=== PATIENT | male | born 1955 | race Two or more races ===

== ENCOUNTER 2024-10-29 14:36 | Emergency (ER) | payer OTHER ==
[~2024-10-29] VITALS: Ht 175.3 cm; Wt 70.3 kg
--- NOTE | 2024-10-29 15:22 | ED.PDOC ---
[place]. trauma (HPI) HPI Comments A 69 YEAR-OLD MALE PRESENTS TO THE ED WITH A CHIEF COMPLAINT OF MULTIPLE TRAUMA S/P FALL YESTERDAY. PATIENT REPORTS THAT HE WAS OUTSIDE ON THE DRIVEWAY, SLIPPED ON SOAP, AND HAS SINCE HAD A HEMATOMA ON THE HEAD, WELL , RIGHT FOREARM AND RIB PAIN. PATIENT ADDITIONALLY NOTES A GANGLION CYST TO THE LEFT ARM NOT CAUSED BY THIS INCIDENT SPECIFICALLY. PATIENT HAS NO FURTHER SYMPTOMS AT THIS TIME AND OTHERWISE DENIES LOC, DIZZINESS, MIGRAINE, FEVER, N/V, OR CHEST PAIN. PATIENT IS ALERT, ORIENTED X 4, AND HAS STEADY GAIT. Chief Complaint: MULTIPLE TRAUMA Time Seen by MD: 15:15 Reviewed notes: Nurses Notes, Medications, Allergies Allergies: Coded Allergies: NO KNOWN ALLERGIES (Unverified , 10/29/24) Home Meds Active Scripts Methocarbamol (Methocarbamol) 750 Mg Tab, 750 MG PO QHSP PRN, #20 TAB Prov:ZACHARY SAINI 10/29/24 Ibuprofen (Ibuprofen) 800 Mg Tab, 1 TAB PO TID, #30 TAB Prov:ZACHARY SAINI 10/29/24 Information Source: Patient, Spouse Mode of Arrival: Ambulatory Severity: Moderate Timing: Days (X1) Duration: Since onset Prehospital treatment: None Location: (R) Arm, Head, Other (RIGHT MIDDLE RIBS ) Mechanism: Fall Associated signs and symtoms: Headache, Other (PAIN UPON PALPATION ) Past Medical History Past Medical History (Other): HEPATITIS C Surgical History: Denies all surgeries Family History Family History: Reviewed,noncontributory to illness, No family hx of Cancer, No family hx of DM, No family hx of Heart sparkle, No family hx of HTN, No family hx ofKidney sparkle, No family hx of Liver sparkle, No family hx of Lung sparkle, No family hx of Stroke Social History Smoker: Non-Smoker Alcohol: Occasionally Drugs: Denies Drug Use Lives In: Home Constitutional: denies: chills, diaphoresis, fatigue, fever, malaise, sweats, weakness, others EENTM: denies: blurred vision, double vision, ear bleeding, ear discharge, ear drainage, ear pain, ear ringing, eye pain, eye redness, hearing loss, mouth pain, mouth swelling, nasal discharge, nose bleeding, nose congestion, nose pain, photophobia, tearing, throat pain, throat swelling, voice changes, others Respiratory: denies: cough, hemoptysis, orthopnea, SOB at rest, shortness of breath, SOB with excertion, stridor, wheezing, others Cardiovascular: denies: chest pain, dizzy spells, diaphoresis, Dyspnea on exertion, edema, irregular heart beat, left arm pain, lightheadedness, palpitations, PND, syncope, others Gastrointestinal: denies: abdomen distended, abdominal pain, blood streaked bowels, constipated, diarrhea, dysphagia, difficulty swallowing, hematemesis, melena, nausea, poor appetite, poor fluid intake, rectal bleeding, rectal pain, vomiting, others Genitourinary: denies: burning, dysuria, flank pain, frequency, hematuria, incontinence, penile discharge, penile sore, pain, testicle pain, testicle swelling, urgency, others Neurological: denies: dizziness, fainting, headache, left sided numbness, left sided weakness, numbness, paresthesia, pre-existing deficit, right sided numbne ss, right sided weakness, seizure, speech problems, tingling, tremors, weakness, others Musculoskeletal: reports: joint pain, joint swelling, muscle pain, others (RIGHT ARM PAIN, RIB PAIN ); denies: back pain, gout, muscle stiffness, neck pain Integumetry: reports: bruises (RIGHT ARM AND LEFT FOREHEAD), wounds (HEMATOMA TO THE HEAD ); denies: change in color, change in hair/nails, dryness, laceration, lesions, lumps, rash, others Allergic/Immunocompromised: denies: Difficulty Healing, Frequent Infections, Hives, Itching, others Hematologic/Lymphatic: denies: anemia, blood clots, easy bleeding, easy bruising, swollen glands, others Endocrine: denies: excessive hunger, excessive sweating, excessive thirst, excessive urination, flushing, intolerance to cold, intolerance to heat, unexplained weight gain, unexplained weight loss, others Psychiatric: denies: anxiety, bipolar disorder, depression, hopeless, panic disorder, schizophrenia, sleepless, suicidal, others All Other Systems: Reviewed and Negative Physical Exam General Appearance: No Apparent Distress, Normal HEENT: Head (LEFT FOREHEAD HEMATOMA, NO BONY TENDERNESS AND DEFORMITY. ), Normal ENT Inspection, PERRL/EOMI, Pharynx Normal, TMs Normal Neck: Full Range of Motion, Non-Tender, Normal, Normal Inspection Respiratory: Chest Non-Tender, Lungs Clear, No Accessory Muscle Use, No Respiratory Distress, Normal Breath Sounds Cardiovascular: No Edema, No JVD, No Murmur, No Gallop, Normal Peripheral Pulses, Regular Rate/Rhythm Breast Exam: Deferred Gastrointestinal: No Organomegaly, Non Tender, No Pulsatile Mass, Normal Bowel Sounds, Soft Genitalia: Deferred Pelvic: Deferred Rectal: Deferred Extremities: No calf tenderness, Normal capillary refill, Normal range of motion, No pedal edema, Tender (AND CONTUSION ON RIGHT ARM, NO BONY TENDERNESS, SWELLING AND DEFORMITY, NORMAL ROM. ) Musculoskeletal : Location: Right Apperance: Tenderness (AND MUSCLE TIGHTNESS ON RIGHT MIDDLE RIBS, NO REDNESS AND SWELLING. ) Neurologic: Alert, program support assistant II-XII nml as Tested, No Motor Deficits, Normal Affect, Normal Mood, No Sensory Deficits Cerebellar Function: Normal Reflexes: Normal Skin: Bruises (RIGHT ARM. ), Dry, Normal Color, Warm Peripheral Pulses: 2+ carotid (R), 2+ carotid (L) Lymphatic: No Adenopathy Was a procedure done? Was a procedure done?: No Differential Diagnosis Multiple Trauma: Fractures, Contusion, Hematoma, Laceration X-Ray, Labs, Meds, VS Vital Signs Date Time Temp Pulse Resp B/P (MAP) Pulse Ox O2 Delivery O2 Flow Rate FiO2 //25 15:49 99.7 98 16 97/65 (76) 95 99.7 CLINICAL INFORMATION: Fall injury. TECHNIQUE: Axial imaging was obtained through the brain without contrast. Coronal and sagittal reformatted images were obtained, reviewed, and stored. Images were reviewed in brain and bone windows. All CT scans at this medical facility are performed using dose modulation techniques as appropriate to a performed exam including the following: Automated exposure control was utilized; adjustment of the MA and/or KV according to patient size; and use of iterative reconstruction technique. CTDIvol = 48.31 mGy DLP = 884.92 mGy-cm COMPARISON: None FINDINGS: There is no acute intracranial hemorrhage. No mass effect or midline shift. The ventricles and sulci are within normal limits in size for age. Cavum septum pellucidum et vergae incidentally noted. Basal cisterns are patent. The calvarium is unremarkable. Paranasal sinuses and mastoid air cells are clear. Moderate-sized left frontal scalp hematoma. IMPRESSION: 1. No CT evidence of acute intracranial abnormality. 2. Moderate-sized left frontal scalp hematoma. ICAL HISTORY: 69 years old, Male; FALL. TECHNIQUE: PA view of the chest and AP and oblique views of the right ribs were obtained. COMPARISON: None FINDINGS: There are small calcified granulomas in both lungs. Lungs are otherwise clear. No pneumothorax or pleural effusion. Cardiac and mediastinal contours are within normal limits in size. Pulmonary vasculature is normal. Nondisplaced fracture of the right anterolateral 8th rib without significant displacement. Possible subtle fracture of the anterolateral aspect of the right 9th rib. IMPRESSION: 1. Suspected acute fractures of the right anterolateral 8th and 9th ribs without significant displacement. 2. No other evidence of acute disease in the chest. X-Ray, Labs, Meds, VS Comment EXTERNAL MEDICAL RECORDS: NONE INDEPENDENT HISTORIANS: NONE SOCIAL DETERMINANTS OF HEALTH: NONE LABS ORDERED: NONE REVIEWED AND INTERPRETED RESULTS: NONE IMAGING ORDERED: HEAD CT WITHOUT CONTRAST AND RIGHT RIB XRAY TREATMENTS ORDERED: PT DECLINED PAIN MEDICATION AT THIS TIME, ONLY REQUESTS RX. PATIENT'S CASE AND RESULTS HAVE BEEN DISCUSSED WITH THE ED ATTENDING PHYSICIAN AND THEY AGREE WITH MY PLAN OF CARE. RX: MOTRIN AND ROBAXIN. I HAVE DISCUSSED IMAGING AND LAB RESULTS WITH THE PATIENT AND HAVE INSTRUCTED THE PATIENT TO FOLLOW UP WITH THEIR PCP IN 1-2 DAYS. THE PATIENT FULLY UNDERSTANDS THEIR RESULTS AND ARE AWARE THEY NEED TO FOLLOW UP WITH THEIR PCP FOR FURTHER EVALUATION IF THEIR SYMPTOMS PERSIST. Images Reviewed?: Images reviewed and evaluated by me Time of 1ST Reevaluation: 16:48 Reevaluation 1ST: Improved Patient Education/Counseling: Diagnosis, Treatment, Need For Follow Up Family Education/Counseling: Diagnosis, Treatment, Need For Follow Up Medical Screening: No EMC Exist At This Time Departure 1 Departure Time of Disposition: 17:00 Impression: Primary Impression: Hematoma of frontal scalp Qualified Codes: S00.03XA - Contusion of scalp, initial encounter Additional Impressions: Fracture of right eighth rib Fracture of right ninth rib Disposition: 01 HOME / SELF CARE / HOMELESS Condition: Stable Additional Instructions: FOLLOW-UP WITH PCP IN 1 TO 2 DAYS. TAKE MEDICATIONS PRESCRIBED. RETURN TO ED FOR ANY NEW OR WORSENING SYMPTOMS. e-Prescriptions Methocarbamol (Methocarbamol) 750 Mg Tab 750 MG PO QHSP PRN, #20 TAB Prov: PARVEENSHIRLEYA PA 10/29/24 Ibuprofen (Ibuprofen) 800 Mg Tab 1 TAB PO TID, #30 TAB Prov: PARVEENSHIRLEYA PA 10/29/24 Discharged With: Self, Spouse Critical Care Note Critical Care Time?: No Stability Stability form required: No Heart Score Heart Score: Heart Score Response (Comments) Value History N/A 0 EKG N/A 0 Age N/A 0 Risk Factors N/A 0 Troponin N/A 0 Total 0 I personally scribed for PARVEEN,YINXIA PA ([email or web address]) on 10/29/24 at 15:22. Electronically submitted by Gretchen Parmar ([employer]). I personally scribed for PARVEEN,YINXIA PA ([email or web address]) on 10/29/24 at 15:23. Electronically submitted by Gretchen Parmar ([email or web address]). I personally scribed for PARVEEN,YINXIA PA ([email or web address]) on 10/29/24 at 16:08. Electronically submitted by Gretchen Parmar ([employer]). I personally scribed for PARVEEN,YINXIA PA ([email or web address]) on 10/29/24 at 16:11. Electronically submitted by Gretchen Parmar ([employer]). I personally scribed for PARVEEN,YINXIA PA ([email or web address]) on 10/29/24 at 16:11. Electronically submitted by Gretchen Parmar ([email or web address]). I personally scribed for PARVEEN,YINXIA PA ([email or web address]) on 10/29/24 at 16:33. Electronically submitted by Gretchen Parmar ([employer]). I personally scribed for PARVEEN,YINXIA PA ([email or web address]) on 10/29/24 at 16:40. Electronically submitted by Gretchen Parmar ([employer]). PARVEENYINXIA PA Oct 29, 2024 15:22
[2024-10-29 15:49] VITALS: BP 97/65; PULSE 98; RESP 16; TEMP 99.7; O2SAT 95
--- NOTE | 2024-10-29 15:55 | DVH ---
CLINICAL INFORMATION: Fall injury. TECHNIQUE: Axial imaging was obtained through the brain without contrast. Coronal and sagittal reform atted images were obtained, reviewed, and stored. Images were reviewed in brain and bone windows. Al l CT scans at this medical facility are performed using dose modulation techniques as appropriate to a performed exam including the following: Automated exposure control was utilized; adjustment of the MA and/or KV according to patient size; and use of iterative reconstruction technique. CTDIvol = 48.3 1 mGy DLP = 884.92 mGy-cm COMPARISON: None FINDINGS: There is no acute intracranial hemorrhage. No mass effect or midline shift. The ventricles and sulci are within normal limits in size for age. Cavum septum pellucidum et vergae incidentally no bert. Basal cisterns are patent. The calvarium is unremarkable. Paranasal sinuses and mastoid air leonila ls are clear. Moderate-sized left frontal scalp hematoma. IMPRESSION: 1. No CT evidence of acute intracranial abnormality. 2. Moderate-sized left frontal scalp hematoma.
--- NOTE | 2024-10-29 16:28 | DVH ---
CLINICAL HISTORY: 69 years old, Male; FALL. TECHNIQUE: PA view of the chest and AP and oblique views of the right ribs were obtained. COMPARISON: None FINDINGS: There are small calcified granulomas in both lungs. Lungs are otherwise clear. No pneumoth orax or pleural effusion. Cardiac and mediastinal contours are within normal limits in size. Pulmonar y vasculature is normal. Nondisplaced fracture of the right anterolateral 8th rib without significant displacement. Possible subtle fracture of the anterolateral aspect of the right 9th rib. IMPRESSION: 1. Suspected acute fractures of the right anterolateral 8th and 9th ribs without significant displace ment. 2. No other evidence of acute disease in the chest.
[2024-10-29] MEDS ORDERED: IBUP-1456 PO (16:47)
[2024-10-29] MEDS ORDERED: METH-1182 PO (16:47)
== END 2024-10-29 16:51 | disposition left against medical advice (07) ==
LOC: ER 14:36
DX: S22.31XA Fracture of one rib, right side, initial encounter for closed fracture (principal); S00.03XA Contusion of scalp, initial encounter; W19.XXXA Unspecified fall, initial encounter; Y93.89 Activity, other specified; Y92.89 Other specified places as the place of occurrence of the external cause; Y99.8 Other external cause status
CPT/HCPCS: 70450; 71101